=== PATIENT | female | born 1990 | race Caucasian/White ===

== ENCOUNTER → 2022-03-06 | Outpatient (CLI) | payer OTHER, MEDICAID ==
--- NOTE | 2022-03-06 16:05 | Diagnostic Imaging Report ---
INDICATION: survey. TECHNIQUE: Multiple real-time grayscale images were obtained over the gravid uterus. COMPARISON: None FINDINGS: There is a single live fetus in a cephalic presentation. heart rate was recorded at 143 BPM. Placenta is posterior. No previa is identified. Amniotic fluid index is 13.1 cm. Cervical length is 5.3 cm. survey demonstrates kidneys, bladder, and stomach to be unremarkable. brain is unremarkable. There is a four-chamber heart. There is a three-vessel cord with normal insertion. spine is unremarkable. Biometrical measurements are as follows: Biparietal 4.95 cm, age 21 weeks 0 days. Head circumference 18.67 cm, age 21 weeks 0 days. Abdominal circumference 16.15 cm, age 21 weeks 2 days. Femur length 3.48 cm, age 21 weeks 0 days. Sonographic estimate age: 21 weeks 1 days. Sonographic estimated date of delivery: 07/16/2022. Estimated Weight: 399 gm (+/- 59 gm). LMP percentile: 81%. heart rate: 143 beats per minute. number: 1 of 1. IMPRESSION: Single live IUP of 21 weeks 1 day gestational age. Estimated date of confinement sonographically is 07/16/2022. Dictated by: Dictated on workstation # [id number]
== END ==
LOC: RAD FS 11:30
PROVIDERS: ATTEND Obstetrics & Gynecology
DX: Z34.82 Encounter for supervision of other normal pregnancy, second trimester (principal); Z3A.21 21 weeks gestation of pregnancy
CPT/HCPCS: 76805

== ENCOUNTER 2022-07-22 06:30 | Inpatient (IN) | payer OTHER, MEDICAID ==
[2022-07-22] VITALS (47 sets, daily range): BP systolic 99–142; BP diastolic 53–78
[~2022-07-22] VITALS: Ht 162.6 cm; Wt 95.1 kg
[2022-07-22] MEDS ORDERED: MINERAL OIL 30 ML UDC TOP PRN (09:30)
[2022-07-22 09:39] LABS: BASOPHILS % (AUTO) 0 % (0-10); EOSINOPHILS # (AUTO) 0.2 10^3/uL (0.0-0.3); EOSINOPHILS % (AUTO) 1 % (0-10); HEMATOCRIT 41 % (35-52); HEMOGLOBIN 13.6 g/dL (11.5-16.0); LYMPHOCYTES # (AUTO) 2.3 10^3/uL (1.0-4.0); LYMPHOCYTES % (AUTO) 17 % (12-44); MEAN CORPUSCULAR HEMOGLOBIN 31 pg (25-34); MEAN CORPUSCULAR HGB CONC 34 g/dL (32-36); MEAN CORPUSCULAR VOLUME 92 fL (80-99); MONOCYTES # (AUTO) 0.9 10^3/uL (0.0-1.0); MONOCYTES % (AUTO) 7 % (0-12); NEUTROPHILS # (AUTO) 9.6 10^3/uL (1.8-7.8); NEUTROPHILS % (AUTO) 74 % (42-75); PLATELET COUNT 215 10^3/uL (130-400); WHITE BLOOD COUNT 13.1 10^3/uL (4.3-11.0)
--- NOTE | 2022-07-22 12:04 | History & Physical-OB ---
SHAWN ERNST 07/22/22 1204: OB - Chief Complaint & HPI Date/Time Date of Admission: Date of Admission: Jul 22, 2022 at 06:31 Date seen by a Provider: Jul 22, 2022 Time Seen by a Provider: 12:15 Chief Complaint/History OB-Reason for Admission/Chief: Induction of Labor Hx : 2 Hx Para: 1 Expected Date of Delivery: Jul 21, 2022 Gestational Age in Weeks: 40 Gestational Age in Days: 1 Indication for induction: post dates Admission Nurse Assessment Rev: Yes Allergies and Home Medications Allergies Coded Allergies: No Known Drug Allergies (Unverified , 07/22/22) Patient Home Medication List Home Medication List Reviewed: Yes OB - History Hx of Present Care: Yes Ultrasounds: Normal mid trimester US Obstetrical Complications: None Medical Complications: None Information Induced Hypertension: No Maternal Gestational Diabetes: No Hemorrhage: No Obstetrical History Hx : 2 Hx Para: 1 Hx # Term Pregnancies: 2 Hx # Pregnancies: 0 Number of Living Children: 1 Hx Termination: No Hx Multiple Gestation: No Hx Ectopic : No Hx Stillbirth: No Hx Complication: No Hx Induced Hypertens: No Hx Maternal Gestational Diabet: No Hx Hemorrhage: No Delivery History Hx Dystocia: No Hx Forceps Assisted Delivery: No Hx Vacuum Extraction Assisted: No Hx Placenta Abnormality: No Hx Distress: No Hx Large For Gestational Age I: No Hx Small for Gestational Age I: No Hx Section: No Hx Vaginal Delivery Post C-Sec: No Hx Blood Disorders: No Adverse Rxn to Tranfusion: No Patient Past Medical History None Social History/Family History Alcohol Use: Denies Use Recreational Drug Use: No Smoking Cessation: Current every day smoker Immunizations Influenza Vaccine Up-to-Date: No; Not Current Hepatitis A: Yes Hepatitis B: Yes Tetanus Booster (TDap): Less than 5yrs Rubella: immune RPR/VDRL: Negative GBS Status: Negative HBsAG: Negative OB - Admission Exam Physical Exam Vitals: Vital Signs 07/22/22 07/22/22 10:03 10:17 Temp 36.2 Pulse 78 Resp 20 B/P (MAP) 119/78 (92) Pulse Ox 98 O2 Delivery Room Air Heart: Rhythm Normal Lungs: Clear, Rhonchi (RLL rhonchi) Abdomen: Gravid Extremities: Normal Reflexes: Normal Cervical Dilatation: 5cm Effacement: 75% Station: -1 Membranes: Intact Heart Rate: 130's Contractions on Admission: None Carcamo Scoring Tool (Modified) Dilation (cm): 3-4cm (2) Effacement (%): 51-79% (2) Descent/Station: -1,0 (2) Cervix Consistency: Soft (2) Labs Laboratory Tests Test 07/22/22 09:30 Range/Units White Blood Count 13.1 H 4.3-11.0 10^3/uL Red Blood Count 4.41 3.80-5.11 10^6/uL Hemoglobin 13.6 11.5-16.0 g/dL Hematocrit 41 35-52 % Mean Corpuscular Volume 92 80-99 fL Mean Corpuscular Hemoglobin 31 25-34 pg Mean Corpuscular Hemoglobin Concent 34 32-36 g/dL Red Cell Distribution Width 12.7 10.0-14.5 % Platelet Count 215 130-400 10^3/uL Mean Platelet Volume 11.0 9.0-12.2 fL Immature Granulocyte % (Auto) 1 % Neutrophils (%) (Auto) 74 42-75 % Lymphocytes (%) (Auto) 17 12-44 % Monocytes (%) (Auto) 7 0-12 % Eosinophils (%) (Auto) 1 0-10 % Basophils (%) (Auto) 0 0-10 % Neutrophils # (Auto) 9.6 H 1.8-7.8 10^3/uL Lymphocytes # (Auto) 2.3 1.0-4.0 10^3/uL Monocytes # (Auto) 0.9 0.0-1.0 10^3/uL Eosinophils # (Auto) 0.2 0.0-0.3 10^3/uL Basophils # (Auto) 0.0 0.0-0.1 10^3/uL Immature Granulocyte # (Auto) 0.1 0.0-0.1 10^3/uL OB - Assessment/Plan/Diagnosis Assessment Assessment: induction of labor Admission Dx Induction of labor - post dates Admission Status: Inpatient Order (span 2 midnights) Reason for Inpatient Admission: Induction of labor - post dates Plan Plan: Induction Induction Method: AROM Reason for Induction: Post-dates DORI CLARK DO 07/22/22 1941: Allergies and Home Medications Allergies Coded Allergies: No Known Drug Allergies (Unverified , 07/22/22) OB - Assessment/Plan/Diagnosis Plan Other Plan Verification and Attestation of Medical Student E/M Service A medical student performed and documented this service in my presence. I reviewed and verified all information documented by the medical student and made modifications to such information, when appropriate. I personally performed the physical exam and medical decision making. Dori Clark, Jul 22, 2022,19:41 SHAWN ERNST Jul 22, 2022 12:04 DORI CLARK DO Jul 22, 2022 19:41
[2022-07-22] MEDS: D5 LR IV SOLUTION 1,000 ML IV SCH ×2 (12:15→19:39)
[2022-07-22] MEDS ORDERED: CATHETER FLUSH 10 ML SYR IV SCH ×2 (14:00→22:00)
[2022-07-22] MEDS ORDERED: OXYTOCIN PRE-MIX DRIP 500 ML IV SCH (15:00)
[2022-07-22] MEDS ORDERED: fentaNYL 2 mcg/ml BUPIVA 0.125 100 ML ONE (17:30)
[2022-07-22] MEDS ORDERED: LIDOCAINE PF 2% 5 ML (XYLOCAINE) VIAL ONE (17:47)
[2022-07-22] MEDS ORDERED: fentaNYL INJ 100 MCG/2 ML AMP ONE (17:47)
[2022-07-22] MEDS ORDERED: METOCLOPRAMIDE INJ 10 MG/2 ML (REGLAN) IV PRN (18:30)
[2022-07-22] MEDS ORDERED: ONDANSETRON 4 MG/2 ML (SDV) Z0FRAN IV PRN (18:30)
[2022-07-22] MEDS ORDERED: fentaNYL 2 mcg/ml BUPIVA 0.125 100 ML EPI SCH (18:30)
[2022-07-22] MEDS ORDERED: NALOXONE 0.4 MG/ML 1 ML (NARCAN) VIAL IV PRN ×3 (18:30→21:30)
[2022-07-22] MEDS ORDERED: LACTATED RINGERS 1,000 ML IV SCH (18:30)
[2022-07-22] MEDS ORDERED: diphenhydrAMINE 50 MG/ML INJ (BENADRYL) IV PRN (18:30)
[2022-07-22] MEDS ORDERED: LIDOCAINE 1% INJ 10 ML VIAL ONE (19:43)
--- NOTE | 2022-07-22 21:24 | OB Labor & Delivery Record ---
L&D History Date of Service Date of Service: Jul 22, 2022 History Expected Date of Delivery: Jul 21, 2022 Gestational Age in Weeks: 40 Hx : 2 Hx Para: 1 Complications Events: Routine care Operative Indications (Cesarea: N/A-Vaginal Delivery Intrapartal Events: None L&D Stage1 Stage One Onset of Labor - Date: Jul 22, 2022 Monitors and Tracing Monitor Mode: External Heart Rate: 125 Monitor Accelerations: Uniform Monitor Decelerations: None Station: -1 Mcc Variability: Average (6-10) Short Term Variability: Present Presentation: Vertex Vital Signs VS - Last 72 Hours, by Label 07/22/22 07/22/22 07/22/22 07/22/22 10:03 10:17 10:30 11:05 Temp 36.2 Pulse 68 78 72 75 Resp 20 20 20 20 B/P (MAP) 119/78 (92) 122/74 (90) 118/74 (89) Pulse Ox 98 98 98 98 O2 Delivery Room Air Room Air Room Air Room Air 07/22/22 07/22/22 07/22/22 07/22/22 15:20 15:35 15:50 16:05 Temp 36.9 Pulse 67 64 67 67 Resp 20 20 20 20 B/P (MAP) 130/72 (91) 123/72 (89) 123/70 (87) 123/69 (87) Pulse Ox 98 98 98 98 O2 Delivery Room Air Room Air Room Air Room Air 07/22/22 07/22/22 07/22/22 07/22/22 16:20 16:35 16:50 17:05 Pulse 64 63 64 69 Resp 20 20 20 20 B/P (MAP) 120/70 (87) 123/57 (79) 124/71 (88) 121/69 (86) Pulse Ox 98 98 98 98 O2 Delivery Room Air Room Air Room Air Room Air 07/22/22 07/22/22 07/22/22 07/22/22 17:35 17:50 18:00 18:03 Temp 36.9 Pulse 66 82 66 64 Resp 20 20 20 20 B/P (MAP) 119/72 (88) 122/59 (80) 118/61 (80) 121/58 (79) Pulse Ox 98 98 97 97 O2 Delivery Room Air Room Air Room Air Room Air 07/22/22 07/22/22 07/22/22 07/22/22 18:05 18:10 18:15 18:25 Pulse 65 67 64 80 Resp 20 20 20 20 B/P (MAP) 113/57 (75) 105/59 (74) 110/59 (76) 103/58 (73) Pulse Ox 97 97 97 97 O2 Delivery Room Air Room Air Room Air Room Air 07/22/22 07/22/22 07/22/22 07/22/22 18:29 18:33 18:38 18:42 Pulse 76 67 65 65 Resp 20 20 20 20 B/P (MAP) 99/56 (70) 107/61 (76) 107/61 (76) 107/58 (74) Pulse Ox 97 97 97 97 O2 Delivery Room Air Room Air Room Air Room Air 07/22/22 07/22/22 07/22/22 07/22/22 18:45 18:49 18:53 19:00 Pulse 65 64 63 65 Resp 20 20 20 20 B/P (MAP) 108/60 (76) 106/60 (75) 107/62 (77) 100/58 (72) Pulse Ox 97 97 98 98 O2 Delivery Room Air Room Air Room Air Room Air 07/22/22 07/22/22 07/22/22 07/22/22 19:05 19:10 19:13 19:18 Temp 37.3 Pulse 68 64 64 68 Resp 20 B/P (MAP) 106/60 (75) 101/59 (73) 107/64 (78) 103/64 (77) Pulse Ox 97 98 97 O2 Delivery Room Air Room Air Room Air 07/22/22 07/22/22 07/22/22 07/22/22 19:22 19:25 19:30 19:34 Pulse 66 67 68 75 B/P (MAP) 104/68 (80) 110/67 (81) 110/64 (79) 114/67 (83) Pulse Ox 96 95 97 O2 Delivery Room Air Room Air Room Air Room Air 07/22/22 07/22/22 19:53 20:08 Pulse 73 78 B/P (MAP) 112/63 (79) 112/65 (81) Pulse Ox 98 98 O2 Delivery Room Air Room Air Rupture of Membranes Spontaneous Ruture of Membrane: No Amniotic Membrane Rupture Time: 1255 Amniotic Membrane Fluid Desc.: Clear Vaginal Bleeding Description: Normal Show Induction/Anesthesia Epidural Cath Placement - Time: 1756 Progress/Notes Patient admitted for elective IOL. Arom performed followed by pitocin augmentation. She received an epidural and progressed to complete and + 2 station. L&D Stage2 Stage Two Stage II Date: Jul 22, 2022 Monitors and Tracing Monitor Mode: External Heart Rate: 125 Monitor Accelerations: Uniform Monitor Decelerations: Variable Mcc Variability: Average (6-10) Short Term Variability: Present Position: Right Occiput Anterior Presentation: Vertex Cord Descript/Complications Cord Vessel Description: 3 Vessels Delivery Type Infant Delivery Method: Spontaneous Vaginal Episiotomy/Perineal Laceration Episiotomy Description: Perineal Extension/lac, 1st degree Degree (describe repair) 1st degree laceration repaired using 3-0 rapide in usual fashion. Condition of Delivery 1 minute Comment: 8 5 minute Comment: 9 Notes Live female weight pending. Condition of Condition of : Living Exam: No Observed Abnormalities Resuscitation Resuscitation: N/A - Spontaneous Resp L&D Stage3 Stage Three Stage III Date: Jul 22, 2022 Pictocin Pitocin Administration mu/min: 8 Pitocin ml/hr: 8 Pitocin Administration Comment: 30 mu wide open after delivery of placenta Placenta Delivery Placenta Delivery: Spontaneous Delivery Summary Summary Estimated blood loss (mL): 400 Attending at delivery: Dori Clark DO Condition of Delivery Examined: Cervix Examined, Uterus Explored Post Hemorrhage: No Condition of Mother stable Condition of Infant (s) stable DORI CLARK DO Jul 22, 2022 21:24
[2022-07-22] MEDS ORDERED: HYDROcodone/APAP 5 MG/325 MG (LORTAB) TAB PO PRN (21:30)
[2022-07-22] MEDS ORDERED: WITCH HAZEL(TUCKS) 40 EA JAR TOP PRN (21:30)
[2022-07-22] MEDS ORDERED: BENZOCAINE/MENTHOL (DERMOPLAST) 56 ML CAN TP PRN (21:30)
[2022-07-22] MEDS ORDERED: TETANUS,DIPTH,PERTUSS P/F (BOOSTRIX) 0.5 ML VIAL IM ONE (21:30)
[2022-07-22] MEDS ORDERED: MEASLES,MUMPS,RUBELLA 1 EA INJ SQ ONE (21:30)
[2022-07-22] MEDS ORDERED: DIBUCAINE 1% OINTMENT 28 GM TUBE TOP PRN (21:30)
[2022-07-22] MEDS: OXYTOCIN PRE-MIX DRIP 500 ML IV SCH ×2 (21:38→22:16)
[2022-07-22] MEDS: IBUPROFEN 600 MG (MOTRIN) TAB PO SCH (21:38)
[2022-07-23 03:09] VITALS: BP 102/53
[2022-07-23] MEDS: IBUPROFEN 600 MG (MOTRIN) TAB PO SCH ×4 (03:09→22:20)
[2022-07-23 05:58] LABS: BASOPHILS % (AUTO) 0 % (0-10); EOSINOPHILS # (AUTO) 0.1 10^3/uL (0.0-0.3); EOSINOPHILS % (AUTO) 0 % (0-10); HEMATOCRIT 32 % (35-52); HEMOGLOBIN 10.6 g/dL (11.5-16.0); LYMPHOCYTES # (AUTO) 2.1 10^3/uL (1.0-4.0); LYMPHOCYTES % (AUTO) 13 % (12-44); MEAN CORPUSCULAR HEMOGLOBIN 31 pg (25-34); MEAN CORPUSCULAR HGB CONC 34 g/dL (32-36); MEAN CORPUSCULAR VOLUME 94 fL (80-99); MEAN PLATELET VOLUME 11.5 fL (9.0-12.2); MONOCYTES # (AUTO) 1.1 10^3/uL (0.0-1.0); MONOCYTES % (AUTO) 7 % (0-12); NEUTROPHILS # (AUTO) 12.7 10^3/uL (1.8-7.8); NEUTROPHILS % (AUTO) 79 % (42-75); PLATELET COUNT 169 10^3/uL (130-400)
--- NOTE | 2022-07-23 07:10 | Postpartum Progress Note ---
SHAWN ERNST 07/23/22 0709: Note Note Day # 1 Subjective: Patient is without complaints. Ambulating, voiding. Tolerating a regular diet without nausea or vomiting. Normal lochia. Pain is well controlled with oral pain medications. She did endorse occasional dizziness upon standing. Advised her to take her time and rise slowly. Objective: Physical Exam: General - Alert and oriented, no apparent distress Cardio - RRR, nu murmurs Pulm - CTAB Abdomen - Soft, appropriately tender to palpation, non-distended, fundus firm at umbilicus Extremities - no edema, negative Regino's bilaterally Assessment: Post- day # 1, status post vaginal delivery. Recovering well, hemodynamically stable Acute blood loss anemia Reactive leukocytosis Plan: Routine care. Encourage breast feeding. Encourage ambulation. Advised her about orthostatic hypotension and to be cautious with ambulating. Ferrous sulfate supplementation. Plan for discharge 07/24 Vitals - Labs Vital Signs - I&O Vital Signs Date Time Temp Pulse Resp B/P (MAP) Pulse Ox O2 Delivery O2 Flow Rate FiO2 07/23/22 03:09 36.6 60 20 102/53 (69) 99 Room Air 07/22/22 23:45 68 18 99/53 (68) 98 Room Air 07/22/22 23:14 36.3 81 18 113/56 (75) 98 Room Air 07/22/22 22:07 65 112/56 (74) Room Air 07/22/22 21:38 64 109/61 (77) Room Air 07/22/22 21:22 75 107/55 (72) Room Air 07/22/22 21:07 68 116/59 (78) Room Air 07/22/22 20:53 64 99/55 (70) Room Air 07/22/22 20:39 65 109/66 (80) Room Air 07/22/22 20:23 66 117/55 (75) 99 Room Air 07/22/22 20:08 78 112/65 (81) 98 Room Air 07/22/22 19:53 73 112/63 (79) 98 Room Air 07/22/22 19:34 75 114/67 (83) 97 Room Air 07/22/22 19:30 68 110/64 (79) Room Air 07/22/22 19:25 67 110/67 (81) 95 Room Air 07/22/22 19:22 66 104/68 (80) 96 Room Air 07/22/22 19:18 68 103/64 (77) 97 Room Air 07/22/22 19:13 64 107/64 (78) 98 Room Air 07/22/22 19:10 37.3 64 20 101/59 (73) 97 Room Air 07/22/22 19:05 68 106/60 (75) 07/22/22 19:00 65 20 100/58 (72) 98 Room Air 07/22/22 18:53 63 20 107/62 (77) 98 Room Air 07/22/22 18:49 64 20 106/60 (75) 97 Room Air 07/22/22 18:45 65 20 108/60 (76) 97 Room Air 07/22/22 18:42 65 20 107/58 (74) 97 Room Air 07/22/22 18:38 65 20 107/61 (76) 97 Room Air 07/22/22 18:33 67 20 107/61 (76) 97 Room Air 07/22/22 18:29 76 20 99/56 (70) 97 Room Air 07/22/22 18:25 80 20 103/58 (73) 97 Room Air 07/22/22 18:15 64 20 110/59 (76) 97 Room Air 07/22/22 18:10 67 20 105/59 (74) 97 Room Air 07/22/22 18:05 65 20 113/57 (75) 97 Room Air 07/22/22 18:03 64 20 121/58 (79) 97 Room Air 07/22/22 18:00 36.9 66 20 118/61 (80) 97 Room Air 07/22/22 17:50 82 20 122/59 (80) 98 Room Air 07/22/22 17:35 66 20 119/72 (88) 98 Room Air 07/22/22 17:05 69 20 121/69 (86) 98 Room Air 07/22/22 16:50 64 20 124/71 (88) 98 Room Air 07/22/22 16:35 63 20 123/57 (79) 98 Room Air 07/22/22 16:20 64 20 120/70 (87) 98 Room Air 07/22/22 16:05 67 20 123/69 (87) 98 Room Air 07/22/22 15:50 67 20 123/70 (87) 98 Room Air 07/22/22 15:35 64 20 123/72 (89) 98 Room Air 07/22/22 15:20 36.9 67 20 130/72 (91) 98 Room Air 07/22/22 11:05 75 20 118/74 (89) 98 Room Air 07/22/22 10:30 72 20 122/74 (90) 98 Room Air 07/22/22 10:17 36.2 78 20 98 Room Air 07/22/22 10:03 68 20 119/78 (92) 98 Room Air I & O 07/23/22 07:00 Intake Total 3000 ml Balance 3000 ml Labs Laboratory Tests 07/22/22 09:30: White Blood Count 13.1H, Red Blood Count 4.41, Hemoglobin 13.6, Hematocrit 41, Mean Corpuscular Volume 92, Mean Corpuscular Hemoglobin 31, Mean Corpuscular Hemoglobin Concent 34, Red Cell Distribution Width 12.7, Platelet Count 215, Mean Platelet Volume 11.0, Immature Granulocyte % (Auto) 1, Neutrophils (%) (Auto) 74, Lymphocytes (%) (Auto) 17, Monocytes (%) (Auto) 7, Eosinophils (%) (Auto) 1, Basophils (%) (Auto) 0, Neutrophils # (Auto) 9.6H, Lymphocytes # (Auto) 2.3, Monocytes # (Auto) 0.9, Eosinophils # (Auto) 0.2, Basophils # (Auto) 0.0, Immature Granulocyte # (Auto) 0.1, Syphilis Serology Non-Reactive 07/23/22 05:30: White Blood Count 16.0H, Red Blood Count 3.38L, Hemoglobin 10.6#L, Hematocrit 32L, Mean Corpuscular Volume 94, Mean Corpuscular Hemoglobin 31, Mean Corpuscular Hemoglobin Concent 34, Red Cell Distribution Width 12.7, Platelet Count 169, Mean Platelet Volume 11.5, Immature Granulocyte % (Auto) 1, Neutrophils (%) (Auto) 79H, Lymphocytes (%) (Auto) 13, Monocytes (%) (Auto) 7, Eosinophils (%) (Auto) 0, Basophils (%) (Auto) 0, Neutrophils # (Auto) 12.7H, Lymphocytes # (Auto) 2.1, Monocytes # (Auto) 1.1H, Eosinophils # (Auto) 0.1, Basophils # (Auto) 0.0, Immature Granulocyte # (Auto) 0.1 DORI CLARK DO 07/23/22 0722: Note Note Verification and Attestation of Medical Student E/M Service A medical student performed and documented this service in my presence. I reviewed and verified all information documented by the medical student and made modifications to such information, when appropriate. I personally performed the physical exam and medical decision making. Dori Clark, Jul 23, 2022,07:22 SHAWN ERNST Jul 23, 2022 07:09 DORI CLARK DO Jul 23, 2022 07:22
[2022-07-23 07:57] VITALS: BP 102/53
--- NOTE | 2022-07-23 08:52 | Anesthesia-Regional Post-Op ---
Regional Patient Condition Mental Status: Alert, Oriented x3 Circulation: Same as Pre-Op Headache: Absent Sensation: Full Recovery Motor Block: Absent Post Op Complications Complications None Follow Up Care/Instructions Patient Instructions None needed. Anesthesia/Patient Condition Patient is doing well, no complaints, stable vital signs, no apparent adverse anesthesia problems. No complications reported per nursing. D/C home per [facility] Criteria: Yes FREDDY FAUST CRNA Jul 23, 2022 08:52
[2022-07-23] MEDS: FERROUS SULF 325 MG (IRON) TAB PO SCH (09:12)
[2022-07-23] MEDS: DOCUSATE SODIUM 100 MG (COLACE) CAP PO SCH ×2 (09:13→22:20)
[2022-07-23] MEDS: PRENATAL VITAMIN 1 EA TAB PO SCH (09:13)
[2022-07-23 12:00] VITALS: BP 96/54
[2022-07-23 17:18] VITALS: BP 117/67
[2022-07-23 22:20] VITALS: BP 103/66
[2022-07-24 04:39] VITALS: BP 101/68
[2022-07-24] MEDS: IBUPROFEN 600 MG (MOTRIN) TAB PO SCH ×2 (04:39→10:01)
--- NOTE | 2022-07-24 07:37 | Postpartum Progress Note ---
SHAWN ERNST 07/24/22 0737: Note Note Day # 2 Subjective: Patient is without complaints. Ambulating, voiding. Tolerating a regular diet without nausea or vomiting. Normal lochia. Pain is well controlled with oral pain medications. Objective: Physical Exam: General - Alert and oriented, no apparent distress Abdomen - Soft, appropriately tender to palpation, non-distended, fundus firm at umbilicus Extremities - no edema, negative Regino's bilaterally Assessment: Post- day # 2, status post vaginal delivery. Recovering well, hemodynamically stable Plan: Routine care. Encourage breast feeding. Encourage ambulation. Ferrous sulfate supplementation. Plan for discharge 07/24 Vitals - Labs Vital Signs - I&O Vital Signs Date Time Temp Pulse Resp B/P (MAP) Pulse Ox O2 Delivery O2 Flow Rate FiO2 07/24/22 04:39 36.0 57 18 101/68 (79) 98 Room Air 07/23/22 22:20 36.8 85 20 103/66 (78) 98 Room Air 07/23/22 17:18 36.4 90 20 117/67 (84) Room Air 07/23/22 12:00 36.7 74 14 96/54 (68) 96 Room Air 07/23/22 07:57 36.2 82 14 102/53 (69) 96 Room Air DORI CLARK DO 07/24/22 0814: Note Note Verification and Attestation of Medical Student E/M Service A medical student performed and documented this service in my presence. I reviewed and verified all information documented by the medical student and made modifications to such information, when appropriate. I personally performed the physical exam and medical decision making. Dori Clark Jul 24, 2022,08:14 SHAWN ERNST Jul 24, 2022 07:37 DORI CLARK DO Jul 24, 2022 08:14
--- NOTE | 2022-07-24 08:19 | Discharge Inst-Women's Service ---
Discharge Inst-Women's Serv Depart Medication/Instructions New, Converted or Re-Newed RX: Transmitted to Pharmacy Final Diagnosis PPD 2 NVD Problems Reviewed?: Yes Consults/Follow Up Additional Follow Up: Yes Orders/Referrals Dr. Clark in 6 weeks Activity Activity: Activity as Tolerated Driving Instructions: No Driving for 1 Week NO SMOKING: NO SMOKING Nothing Inside Vagina: No Douching, No [place], No Tampons Diet Discharge Diet: No Restrictions Symptoms to Report to : Bleeding Excessive, Pain Increased, Fever Over 101 Degrees F, Vaginal Bleeding Increase, Questions/Concerns For Any Problems or Questions: Contact Your Physician DORI CLARK DO Jul 24, 2022 08:19
[2022-07-24] MEDS ORDERED: IBUP-844 PO (08:21)
[2022-07-24] MEDS ORDERED: BENZ78AE5 TP (08:21)
[2022-07-24] MEDS ORDERED: ACHD5005 PO (08:21)
[2022-07-24] MEDS ORDERED: FERR325T24 PO (08:21)
[2022-07-24] MEDS ORDERED: DOCU100C37 PO (08:21)
[2022-07-24] MEDS ORDERED: DIBU30OI TOP (08:21)
[2022-07-24 10:00] VITALS: BP 119/57
[2022-07-24] MEDS: FERROUS SULF 325 MG (IRON) TAB PO SCH (10:00)
[2022-07-24] MEDS: PRENATAL VITAMIN 1 EA TAB PO SCH (10:00)
[2022-07-24] MEDS: DOCUSATE SODIUM 100 MG (COLACE) CAP PO SCH (10:01)
[2022-07-24 12:20] VITALS: BP 119/57
== END 2022-07-24 12:20 | disposition home or self-care (01) | DRG 806 ==
LOC: LDRP 06:31
PROVIDERS: ADMIT Obstetrics & Gynecology; ATTEND Obstetrics & Gynecology
PROC: 10E0XZZ Delivery of Products of Conception, External Approach (ICD-10-PCS; principal; 2022-07-22)
PROC: 0HQ9XZZ Repair Perineum Skin, External Approach (ICD-10-PCS; 2022-07-22)
PROC: 0W8NXZZ Division of Female Perineum, External Approach (ICD-10-PCS; 2022-07-22)
PROC: 10907ZC Drainage of Amniotic Fluid, Therapeutic from Products of Conception, Via Natural or Artificial Opening (ICD-10-PCS; 2022-07-22)
DX: O48.0 Post-term pregnancy (principal); D62 Acute posthemorrhagic anemia; Z37.0 Single live birth; Z3A.40 40 weeks gestation of pregnancy; O99.334 Smoking (tobacco) complicating childbirth; F17.210 Nicotine dependence, cigarettes, uncomplicated; O70.0 First degree perineal laceration during delivery; O90.81 Anemia of the puerperium; D72.828 Other elevated white blood cell count
CPT/HCPCS: 36415; 85025; 86780; 86850; 86900; 86901